=== PATIENT | female | born 1980 ===

== ENCOUNTER 2021-04-18 22:28 | Emergency (ER) | payer SELFPAY ==
[~2021-04-18] VITALS: Ht 165.1 cm; Wt 110.0 kg
[2021-04-18 22:36] VITALS: BP 155/86
== END 2021-04-18 22:44 ==
LOC: ER 22:28
DX: E11.9 Type 2 diabetes mellitus without complications (principal); I12.9 Hypertensive chronic kidney disease with stage 1 through stage 4 chronic kidney disease, or unspecified chronic kidney disease; N18.9 Chronic kidney disease, unspecified; E66.9 Obesity, unspecified
CPT/HCPCS: 99283